=== PATIENT | female | born 2000 | race Caucasian/White ===

== ENCOUNTER 2021-02-04 21:46 | Emergency (ER) | payer SELFPAY ==
[2021-02-04] MEDS ORDERED: methylPREDNISolone Sod Succinate 125 MG/2 ML INJ IV ONE (21:55)
[2021-02-04] MEDS ORDERED: diphenhydrAMINE 50 MG/ML VIAL IV ONE (21:55)
[2021-02-04] MEDS ORDERED: FAMOTIDINE 20 MG/2 ML INJ IV ONE ×2 (21:55→21:56)
[2021-02-04] MEDS ORDERED: methylPREDNISolone Sod Succinate 125 MG/2 ML INJ ONE (21:56)
[2021-02-04] MEDS ORDERED: diphenhydrAMINE 50 MG/ML VIAL ONE (21:56)
--- NOTE | 2021-02-05 05:17 | Emergency Department Report ---
ED General Adult HPI - General Chief complaint: Allergic Reaction Stated complaint: RASH Time Seen by Provider: 02/04/21 23:54 Source: patient Mode of arrival: Ambulatory Limitations: No Limitations - History of Present Illness Initial comments: 20-year-old female (4 months) patient presents to the emergency department with complaints of a diffuse pruritic rash occurring just prior to arrival. Patient states her rash began after she was exposed to grass while walking barefoot. Patient has never experienced an allergic reaction before. No new foods, medications, or occupational exposures. No recent travel. No history of similar symptoms. Denies fever, chills, shortness of breath, chest tightness, angioedema, syncope. Denies all other complaints at this time. - Related Data Previous Rx's Medication Instructions Recorded Last Taken Type Famotidine [Pepcid] 10 mg PO BID 5 Days tablet 02/05/21 Unknown Rx Allergies Allergy/AdvReac Type Severity Reaction Status Date / Time No Known Allergies Allergy Unverified 02/04/21 21:47 ED Review of Systems ROS: Stated complaint: RASH Other details as noted in HPI Other: GENERAL: Negative for fever. CARDIOVASCULAR: Negative for chest pain. PULMONARY: Negative for shortness of breath. GASTROINTESTINAL: Negative for abdominal pain. MUSCULOSKELETAL: Negative for back pain. NEUROLOGICAL: Negative for headache. INTEGUMENTARY: Positive for rash. ED Past Medical Hx - Past Medical History Previous Medical History?: No - Surgical History Past Surgical History?: No - Social History Smoking Status: Never Smoker Substance Use Type: Marijuana - Medications Home Medications: Home Medications Medication Instructions Recorded Confirmed Last Taken Type Famotidine [Pepcid] 10 mg PO BID 5 Days tablet 02/05/21 Unknown Rx ED Physical Exam - General Limitations: No Limitations - Other Other exam information: General: Awake and alert. No acute distress. Head: Atraumatic, normocephalic. Eyes: EOMI. Pupils are equal and round. Normal sclera and conjunctiva. ENT: Oral mucosa is moist. Normal pharyngeal exam. Neck: Supple. No lymphadenopathy. Pulmonary: No respiratory distress. Clear to auscultation bilaterally. Cardiac: Regular rate and rhythm. Pulses are palpable and equal bilaterally. No lower extremity cyanosis or edema. Skin: Warm and dry. Earlier reported rash is currently resolved. Abdomen: Soft, non-tender, non-protuberant. No guarding, rigidity, or rebound. Bowel sounds are normal. No organomegaly or masses noted. Back: Normal alignment. No CVA tenderness. Extremities: Symmetrical. Full range of motion intact. Neurological: Alert and oriented, appropriately interactive, no focal deficits. Psych: Cooperative. Appropriate mood and affect. Speech is evenly metered. Thoughts are logically construed. ED Course Vital Signs 02/04/21 21:48 Temperature 98.1 F Pulse Rate 117 H Respiratory 18 Rate Blood Pressure 130/81 O2 Sat by Pulse 97 Oximetry ED Medical Decision Making - Medical Decision Making Differential diagnosis including but not limited to: anaphylaxis, contact dermatitis, tinea corporis, parasitic infection, eczema Patient presents to the emergency department with signs/symptoms suggestive of allergic reaction. Patient was administered Benadryl, steroids, and histamine blockers several hours prior to medical screening examination. At the time of the patient's medical screening exam, the patient's rash has resolved, and she is resting comfortably. Patient states she is feeling much better. Tachycardia resolved. Repeat heart rate 78 bpm. No clinical evidence to suggest airway obstruction or rebound symptoms warranting further diagnostic work-up or continued ED observation at this time. Patient will be discharged home with histamine blockers and referred to [facility] for close outpatient follow-up. Patient expressed understanding and is agreeable to plan of care. Strict return precautions provided. Repeat exam is unremarkable and benign. History, exam, diagnostic testing, and current condition do not suggest worrisome pathology to warrant further testing, continued ED treatment, admission, or surgical evaluation at this point. Given the low probability of a significant medical illness, it would be more likely to result in harm than benefit to perform further testing at this stage. Discussed findings, presumptive diagnosis, need for follow-up and specific signs/symptoms that should prompt immediate return to the emergency department. Instructions were explained in detail to the patient in addition to giving written discharge information. Patient expressed understanding and was given the opportunity to ask questions, all of which were satisfactorily answered prior to discharge home. Critical care attestation.: If time is entered above; I have spent that time in minutes in the direct care of this critically ill patient, excluding procedure time. ED Disposition Clinical Impression: Allergic reaction Qualifiers: Encounter type: initial encounter Qualified Code(s): T78.40XA - Allergy, unspecified, initial encounter Qualifiers: Weeks of gestation: unspecified Qualified Code(s): Z34.90 - Encounter for supervision of normal , unspecified, unspecified trimester Disposition: HOME / SELF CARE / HOMELESS Is pt being admited?: No Does the pt Need Aspirin: No Condition: Stable Instructions: Allergies, Adult, [id number], Care Additional Instructions: Take Pepcid as directed. Continue Benadryl as needed. Follow-up with die presser this week. Call Sunday to schedule appointment. See referral information below. Return to the emergency department immediately for new or worsening symptoms. Specifically, return to the emergency department immediately for fever, difficulty breathing, swelling of the tongue/lips, worsening rash, chest tightness, wheezing, or any other concerns. Prescriptions: Famotidine [Pepcid] 10 mg PO BID 5 Days tablet Referrals: [facility] [Provider Group] - 3-5 Days [facility] [Provider Group] - 3-5 Days [facility] [Provider Group] - 3-5 Days Time of Disposition: 05:19
[2021-02-05 05:44] VITALS: BP 112/70
== END 2021-02-05 05:47 | disposition home or self-care (01) ==
LOC: ED 21:46
DX: O26.891 Other specified pregnancy related conditions, first trimester (principal); T78.40XA Allergy, unspecified, initial encounter; Z79.899 Other long term (current) drug therapy; Z3A.01 Less than 8 weeks gestation of pregnancy; X58.XXXA Exposure to other specified factors, initial encounter
CPT/HCPCS: 96374; 96375; 99282; J1200; J2930